=== PATIENT | male | born 1950 | race Caucasian/White ===

== ENCOUNTER 2017-10-09 12:40 | Inpatient (IN) | payer OTHER ==
[2017-10-09] MEDS ORDERED: METOCLOPRAMIDE 10 MG TAB PO PRN (18:35)
[2017-10-09] MEDS ORDERED: ACETAMINOPHEN 325 MG TAB PO PRN (18:35)
[2017-10-09] MEDS ORDERED: HYDROCODONE/APAP 5/325 TAB PO PRN (18:35)
[2017-10-09] MEDS ORDERED: ONDANSETRON 4 MG/2 ML VIAL IVP PRN (18:35)
[2017-10-09] MEDS ORDERED: ONDANSETRON DISINTEGRATING 4 MG TAB PO PRN (18:35)
[2017-10-10] MEDS: OXYCODONE/APAP 5/325 TAB PO PRN ×3 (04:58→18:37)
[2017-10-10] MEDS: CYCLOBENZAPRINE 10 MG TAB PO PRN ×2 (05:37→19:36)
--- NOTE | 2017-10-10 08:15 | GHP ---
[f rep st] HISTORY AND PHYSICAL DATE OF ADMISSION: 10/09/2017 CHIEF COMPLAINT: Leg weakness. HISTORY OF PRESENT ILLNESS: The patient is a 67-year-old male known to Dr. Moody for previou s lumbar fusions. 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 He was in his normal state of health until 10/01/2017, when he fell. He was ev aluated in the emergency department and was found to have no acute issues and was subsequently discha rged. On the evening, around midnight, of 10/03/2017, he was at home when he developed a horrible pa in, radiating from his back into his groin, with shooting pain radiating down into both legs. He pre sented back to the emergency department where he underwent an MRI and CT scan of his lumbar spine. T his showed adjacent-level degeneration at T12-L1. He was subsequently started on steroids and Neuron tin. No surgical intervention was offered, and he was subsequently discharged to rehabilitation. He currently complains of pain radiating into both groins, with occasional shooting pain down his legs. His pain is worse when he leans backward. This is associated with general weakness in his legs and difficulty walking. He has numbness from his knees down. He denies any fevers, chills, or bowel or bladder problems. PAST MEDICAL HISTORY: 1. Inclusion body myositis. 2. Hypertension. MEDICATIONS: Prior to admission are Norvasc, Catapres, Flexeril, Valium, Zestril, MS Contin, multivi tamin, oxycodone, and Ambien. ALLERGIES: No known drug allergies. FAMILY HISTORY: Patient has no family history of spine problems. SOCIAL HISTORY: Patient is and has grown children, as well as grandchildren. He does not sm mahnaz, occasionally drinks, denies recreational drug use. REVIEW OF SYSTEMS: Negative. PHYSICAL EXAM: GENERAL: Patient is a 67-year-old male lying in bed, in no apparent distress. HEAD, EYES, EARS, NOSE, AND THROAT: Negative for drainage. EXTREMITIES: Jeffers, warm, and dry. NEUROLOGI DAVIDA: Patient is awake, alert, oriented x4. Pupils equal, round, reactive to light. Extraocular mot ions are intact. There is no evidence of facial droop. Tongue and uvula are midline. Spinal access ory muscles are intact. His upper extremities are approximately 4+ out of 5, with generalized weakne ss in his biceps, triceps, as well as his right deltoid, which is approximately 3/5. His lower extre mities have 5/5 strength in his bilateral psoas, but his bilateral quads are 3/5. He has 5- out of 5 in his dorsiflexors and plantar flexors. Deep tendon reflexes are 1+ out of 4 throughout, with a ne gative Nenita's and a questionable 1-2 beats of clonus bilaterally. DIAGNOSTIC STUDIES: An MRI from 10/04/2017 from [facility], loaded onto the [facility] PACS system, shows postoperative changes from his previous L1-S1 instrumentation and fusion. He do es have a straight sagittal alignment with kyphosis at the L1-L2 level. At T12-L1, there is a broad- based disc herniation with moderate ligamentum hypertrophy and facet arthropathy, which appears to pr oduce [id number] central canal stenosis seen on the axial images. A CT scan of the cervical spine from [facility] on 10/04/2017 shows postoperative changes from the pre vious L1-S1 fusion. At T12-L1, there is severe degeneration collapse of the disc space, with air in the disc space as well. There is no evidence of an acute fracture. IMPRESSION: This is a 67-year-old male with a history of inclusion body myositis, who has a 10-day h istory of significant leg weakness, difficulty walking, and bilateral groin pain that is likely relat ed to his T12-L1 central canal stenosis. He has not improved with the steroids, Neurontin, and thera py. PLAN: All the above discussed in detail with the patient, as well as Dr. Moody. At this poi nt in time, I would like to obtain an MRI of the cervical spine and the thoracic spine to make sure t hat there is no evidence of any other compressive lesion which may be contributing to his symptoms. We will also consult Dr. Diego Torres for his opinion to determine what he feels may be contributin g to his leg weakness. At this point time, we will keep him on the prednisone and the Neurontin. Wi ll make further treatment recommendations after completion of his imaging studies and his neurology c onsultation. /[id number]/MODL
[2017-10-10] MEDS ORDERED: DIAZEPAM 5 MG TAB PO ONE (09:00)
[2017-10-10] MEDS: predniSONE 20 MG TAB PO SCH (11:06)
[2017-10-10] MEDS: GABAPENTIN 300 MG CAP PO SCH ×4 (11:06→21:46)
--- NOTE | 2017-10-10 12:18 | ASMTCMCOM ---
CM Note CM Note Notes: Spoke with RN & pt. Pt admitted w/bilateral leg weakness; Neuro consulted; awaiting MRI; pt may need surgery. Pt states he normally lives with his spouse, Kay ([phone]), in [facility], but was at [facility] in [facility] [place], for 1 day doing rehab. Pt states his transported him to [facility] seeking Neuro consult because he was unable to do rehab because of severity of leg weakness. Pt would ultimately like to return to [facility], if leg weakness improves. Spoke with Arelis ([phone]), at [facility]; confirmed pt was there for just 1 day. Arelis states [facility] is willing to take pt back, but if it's been >3 days pt will need new insurance auth to return & Arelis will need to know chico. Arelis requests CM send frequent updates; reports she is not able to receive faxes through [employer]; requests faxes be sent to [phone]; updates faxed. Arelis also states [facility] does not provide transportion for their pts & [facility] will need to arrange transport for pt to return. CM will continue to follow. Date Signed: 10/10/2017 12:18 PM Electronically Signed By:Rosita Laguna RN
--- NOTE | 2017-10-10 16:02 | NEUROPROG ---
Assessment: HOSPITAL NEUROLOGY CONSULT REQUESTING: Diego Moody MD REASON: leg weakness, pain HPI: 67 year old right-handed man with a history of biopsy demonstrated inclusion body myositis presented to our facility in transfer for acute lower extremity weakness and pain. Patient was in his usual state of health last month. He generally ambulates without assistance or difficulty and has no limitations in his mobility, save for some extra effort needed to ascend stairs. He was starting to go up some stairs at his home and caught his toe, falling backwards landing on his back and left shoulder. He experienced a lot of shoulder and low back pain after the fall and went to the local ED in [place]. He was cleared medically and discharged home. On returning home he was still having a lot of pain, but on the evening of 10/03 he went to lay in bed and upon going flat developed sudden onset severe shock-like pain in the sacral area wrapping around the groin and descending to the toes. He also noted profound leg weakness. 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 Straightening his back, either standing or laying, seemed to provoke flurries of electric shock-like pain down the legs as noted above. He is now basically having to sit upright at all times to prevent the electric shock sensations from happening. This prompted re-evaluation at the ED in [place], and he was admitted for evaluation. An MRI of the L-spine revealed his known lumbar instrumentation at L1-2, but superior at T12-L1 there was a 6mm disc protrusion with epidural fat resulting in severe central canal stenosis. Neurosurgery was consulted and conservative therapy with PT/rehab and steroid was recommended. He was discharged to rehab, but he was having such pain and weakness he called his primary neurosurgery team here and [facility] and arranged self transfer to our facility. He is still profoundly weak in the legs, and notes this is a dramatic departure from his more mild weakness related to his IBM. He has never experienced any pain like this either. He is not having any bowel/bladder dysfunction. He has chronic shoulder orthopedic issues which make arm elevation difficult, but has also noted new weakness with extension about the elbows. He is having more deep and subtle tingling in the calf regions in both legs, but no profound numbness or tingling. ROS: As per the HPI, otherwise a complete 12 point ROS was performed and is negative ALLERGIES AND MEDS: As recorded in the EMR - reviewed and reconciled PFSH: As per the intake H&P by DEVON Rao from today EXAM: VS reviewed in EMR GEN: WDWN sitting in NAD HEENT: NCAT, sclera anicteric, conjunctiva not injected, MMM, oropharynx clear, no scalp tenderness NECK: supple, nontender, no meningismus CV: RRR s1 s2 wo m/r/c/g. Carotid pulses 2+ wo bruit NEURO: MS: awake, alert, oriented to all spheres. Speech nondysarthric. No language disturbance. Follows commands. Attends to both sides. Recent/remote memory grossly intact. Mood euthymic. Good fund of knowledge. CN: pupils 3mm round and reactive. Fundi with sharp discs. VFF. Primary gaze centered. Full ocular motility. Facial sensation preserved. Face symmetric. Hearing grossly intact to finger rub. Palatoglossal movements intact. Shoulder shrug and head turn strong. MOTOR: he has atrophy in the forearm flexor compartment of both UEs, as well as medial/lateral quadriceps atrophy. His calves also appear atrophic in the lateral > medial compartments. He is weak in the deltoids secondary to pain. His triceps are both weak at 4-/5. His finger flexors are weak distally at the PIP/DIP in several fingers. He has hip flexor/extensor weakness at 4/5, knee extensor weakness at 4/5, dorsiflexor and plantarflexor weakness at 4+/5. SENSORY: intact to all modalities throughout. No extinction. COORD: no ataxia FN/HS. Gene preserved. REFLEX: plantars down. No clonus. Absent ankle jerks. Right patellar 2+/4, left patellar 1/4, BUE groups 2/4 GAIT: he is unable to walk DATA REVIEW: Labs reviewed in EMR PERSONALLY INTERPRETED RESULTS AND DATA: MRI L-spine wow reviewed per the HPI IMPRESSION AND RECOMMENDATIONS: // LEG WEAKNESS AND NEUROPATHIC PAIN // HX IBM Patient's weakness is most certainly out of proportion to the expected with IBM , which typically involved quadriceps and dorsiflexors in the LEs. His neuropathic, electric shock-like pain is definitely not typical of IBM and more consistent with a neuropathic process. The acute nature related to his fall si certainly compelling for a traumatic cord/root process, and given his MRI L- spine findings, this is likely symptomatic. I agree with getting MRI of the T- spine to further investigate, as well as MRI C-spine given his arm weakness, which is not typical of IBM (which typically effects the finger flexor muscles of the forearm and less so the biceps). I have ordered PT, as the patient is eager to attempt to be more mobile (and requesting PT). He is tolerating his gabapentin well at low dose, so will increase to 600mg TID - he very amenable - hopefully this can dampen his pain enough to work with PT. Can further increase gabapentin as he tolerates/needs to max daily dosing regimen of 1200mg TID if needed (he has no renal impairment - GFR > 60, Cr 0.7 on 10/04) Further pain management per primary team. Case was discussed with Dr. Moody. Will sign off. Recall PRN. Objective: Vital Signs Temp Pulse Resp BP Pulse Ox 36.4 C 74 16 125/82 H 91 L 10/10/17 12:00 10/10/17 12:00 10/10/17 12:10/10/17 12:10/10/17 12:00 10/09/17 10/10/17 10/11/17 05:59 05:59 05:59 Output Total 300 Balance -300 Allergies/Adverse Reactions: No Known Allergies Allergy (Unverified 08/18/10 13:54)
[2017-10-10] MEDS ORDERED: GABAPENTIN 300 MG CAP PO SCH (16:12)
[2017-10-10] MEDS ORDERED: DIAZEPAM 5 MG TAB ONE (19:33)
[2017-10-10] MEDS: HYDROmorphONE/DILAUDID 1 MG/ML INJ IVP PRN (20:20)
[2017-10-11] MEDS: CYCLOBENZAPRINE 10 MG TAB PO PRN ×2 (03:05→21:37)
[2017-10-11] MEDS: OXYCODONE/APAP 5/325 TAB PO PRN ×2 (03:05→08:09)
[2017-10-11] MEDS: GABAPENTIN 300 MG CAP PO SCH ×3 (08:09→21:37)
[2017-10-11] MEDS: predniSONE 20 MG TAB PO SCH (08:09)
[2017-10-11] MEDS ORDERED: D5W NS W/ 20 KCl/L 1,000 ML IV SCH (08:30)
[2017-10-11] MEDS ORDERED: ENOXAPARIN 40 MG/0.4 ML SYR SC SCH (09:00)
--- NOTE | 2017-10-11 09:24 | SOAPPROG ---
SOAP Progress Note Assessment/Plan: Assessment: 58 yo male with H/O inclusion body myositis with recent acute bilateral LE weakness after a fall. He also has chronic weakness in arms as well MRI C spine and T spine show degenerative changes with severe stenosis at C2/3 Plan: NPO C2-4 laminectomy/fusion and T12/L1 TLIF today at [address] El plan discussed with Dr. Yan 10/11/17 09:20 10/11/17 09:27 Subjective: awake, alert, comfortable. He reports unchanged weakness in Legs expecially quads. He reports longstanding upper extremity weakness the he relates to his IBM. pain controlled Objective: Vital Signs Temp Pulse Resp BP Pulse Ox 36.4 C 79 17 117/72 94 10/11/17 07:31 10/11/17 07:31 10/11/17 07:31 10/11/17 07:31 10/11/17 07:31 10/10/17 10/11/17 10/12/17 05:59 05:59 05:59 Intake Total 1190 Output Total 300 1375 Balance -300 -185 Neuro: A+ox4, speech clear Limited ROM right shoulder since his fall. 4-/5 left deltoid, 3/5 right deltoid 4/5 left finger extensor 3/5 bilat radiosonde specialist 4/5 bilat quad 4/5 bilat PF 5/5 DF/EHL/iliopsoas sens +LT throughout upper/lower ext ICD10 Worksheet Patient Problems: Problems Problem Status Onset Leg weakness, bilateral Acute
--- NOTE | 2017-10-11 12:15 | ASMTCMCOM ---
CM Note CM Note Notes: Pt scheduled to have C2-4 laminectomy/fusion & T12/L1 TLIF today. Arelis at [facility], faxed updates. CM will follow. Dc plan- [facility] Date Signed: 10/11/2017 12:15 PM Electronically Signed By:Rosita Laguna RN
[2017-10-11] MEDS ORDERED: THROMBIN (BOVINE) 20,000 UNIT VIAL TP ONE ×2 (12:18→17:09)
[2017-10-11] MEDS ORDERED: BUPIVACAINE 0.25% 30 ML SDV ONE (12:19)
[2017-10-11] MEDS ORDERED: BACITRACIN 50,000 UNITS/10 ML SYR IRR ONE (12:19)
[2017-10-11] MEDS ORDERED: POVIDONE-IODINE 30 GM OINTTUBE TP ONE (12:19)
[2017-10-11] MEDS ORDERED: CITRATE DEXTROSE SOLN 500 ML BAG ONE ×2 (12:19→15:20)
[2017-10-11] MEDS ORDERED: CHLORHEXIDINE GLUC HIBICLENS 118 ML BTL TP ONE (12:25)
[2017-10-11] MEDS ORDERED: morphINE PF 5 MG/10 ML INJ IT ONE (12:36)
[2017-10-11] MEDS ORDERED: fentaNYL 100 MCG/2 ML INJ IT ONE (12:36)
[2017-10-11] MEDS ORDERED: TRANEXAMIC ACID 1,000 MG in NS (SYRINGE) 50 ML IV ONE (12:36)
[2017-10-11] MEDS ORDERED: ceFAZolin 2 GM/SWFI 2 GM/20 ML SYR IVP ONE ×2 (12:36→13:00)
[2017-10-11] MEDS ORDERED: LR 1,000 ML IV ONE (12:50)
[2017-10-11] MEDS ORDERED: LIDOCAINE 1% 2 ML INJ ID PRN ×2 (12:54→12:55)
--- NOTE | 2017-10-11 13:04 | PDANEPAE ---
ANE History of Present Illness Patient presents for C2-4 laminectomy and fusion as well at T12-L1 TLIF. ANE Past Medical History - Cardiovascular History Hx Arrhythmias: Yes - Pulmonary History Hx Oxygen in Use at Home: No Hx Sleep Apnea: No - Endocrine History Hx Diabetes: No - Chronic Pain History Chronic Pain: Yes - Surgical History Prior Surgeries: At least 4 previous spine procedures ANE Review of Systems Review of Systems: - Exercise capacity Exercise capacity: limited by disability ANE Patient History - Allergies Allergies/Adverse Reactions: No Known Allergies Allergy (Unverified 08/18/10 13:54) - Home Medications Home medications: home medication list seen and reviewed Home Medications: Diazepam [Valium 5 MG (*)] 5 mg PO Q8 PRN 12/07/15 [Last Taken 12/07/15] Lisinopril [Zestril 20 mg (*)] 20 mg PO DAILY 12/07/15 [Last Taken 10/09/17] amLODIPine BESYLATE [Norvasc 10 mg (*)] 10 mg PO DAILY 12/07/15 [Last Taken 03/19] Acetaminophen [Tylenol 325mg (*)] 650 mg PO Q6HRS PRN 10/10/17 [Last Taken Unknown] Albuterol [Proventil Neb] 3 ml IH Q4HRS PRN 10/10/17 [Last Taken Unknown] Aspirin EC [Aspirin EC 81 mg (*)] 81 mg PO DAILY 10/10/17 [Last Taken 10/09/17] Cyclobenzaprine [Flexeril 10 MG (*)] 10 mg PO TID PRN 10/10/17 [Last Taken 10/08 22:00] Enoxaparin [Lovenox 40 MG (*)] 40 mg SQ DAILY 10/10/17 [Last Taken 10/09/17] Gabapentin [Neurontin 300 MG (*)] 300 mg PO TID 10/10/17 [Last Taken 10/09/17 14 :00] Lidocaine 5% [Lidoderm 5% Patch (*)] 1 ea TD DAILY PRN 10/10/17 [Last Taken Unknown] Pantoprazole Sodium [Protonix 40mg (*)] 40 mg PO DAILY 10/10/17 [Last Taken 03/19] oxyCODONE IR [Oxycodone Ir (*)] 5 - 10 mg PO Q3HRS PRN 10/10/17 [Last Taken 03/19 04:00] predniSONE 60 mg PO DAILY 10/10/17 [Last Taken 10/09/17] - NPO status NPO Status: no food or drink >8 hours - Anes Hx Anes Hx: no prior problems - Smoking Hx Smoking Status: Former smoker ANE Labs/Vital Signs - Labs Result Diagrams: 10/11/17 10:29 10/11/17 10:29 - Vital Signs Blood Pressure: 119/74 Heart Rate: 81 Respiratory Rate: 18 O2 Sat (%): 92 Height: 177.8 cm Weight: 78.471 kg ANE Physical Exam - Airway Neck exam: FROM Mallampati Score: Class 2 Mouth exam: normal dental/mouth exam - Pulmonary Pulmonary: no respiratory distress - Cardiovascular Cardiovascular: regular rate and rhythym - ASA Status ASA Status: II ANE Anesthesia Plan Anesthesia Plan: general endotracheal anesthesia Lines/Monitors: arterial line (RBA discussed)
[2017-10-11] MEDS ORDERED: REMIFENTANIL HCL 1 MG VIAL ONE ×3 (13:11→13:12)
[2017-10-11] MEDS ORDERED: fentaNYL 100 MCG/2 ML INJ ONE ×3 (13:11→17:35)
[2017-10-11] MEDS ORDERED: PROPOFOL 200 MG/20 ML VIAL ONE ×2 (13:12→14:14)
[2017-10-11] MEDS ORDERED: PROPOFOL/EMULSION 500 MG/50 ML BOTTLE IV ONE ×3 (13:12→17:40)
[2017-10-11] MEDS ORDERED: LIDOCAINE 2% 5 ML SDV ONE (13:20)
[2017-10-11] MEDS ORDERED: ROCURONIUM 50 MG/5 ML VIAL ONE ×2 (13:20)
[2017-10-11] MEDS ORDERED: DEXAMETHASONE 4 MG/ML VIAL ONE (13:21)
[2017-10-11] MEDS ORDERED: ONDANSETRON 4 MG/2 ML VIAL ONE (13:21)
--- NOTE | 2017-10-11 16:10 | ASMTCMCOM ---
CM Note CM Note Notes: Arelis dutton [facility] inpatient [facility] ([phone]) states they can accept pt Saturday if pt still qualifies and a new ins auth is obtained (she does not anticipate it should take long). CM to follow. Date Signed: 10/11/2017 04:09 PM Electronically Signed By:LEONARDA Joseph
[2017-10-11] MEDS ORDERED: HYDROmorphONE/DILAUDID 2 MG/ML INJ ONE ×2 (17:30→17:31)
[2017-10-11] MEDS ORDERED: ceFAZolin 1 GM VIAL ONE (18:10)
[2017-10-11] MEDS ORDERED: MAGNESIUM HYDROXIDE 30 ML UDCUP PO PRN (19:55)
[2017-10-11] MEDS ORDERED: NALOXONE HCL 0.4 MG/ML INJ IVP PRN (19:55)
[2017-10-11] MEDS ORDERED: BISACODYL 10 MG SUPP PR PRN (19:55)
[2017-10-11] MEDS ORDERED: diphenhydrAMINE 25 MG CAP PO PRN (19:55)
[2017-10-11] MEDS ORDERED: ONDANSETRON 4 MG/2 ML VIAL IVP PRN (19:55)
[2017-10-11] MEDS ORDERED: NS W/ 20 KCl/L 1,000 ML IV SCH (20:00)
[2017-10-11] MEDS ORDERED: ALBUTEROL 3 ML DEYVIAL IH PRN (20:14)
--- NOTE | 2017-10-11 20:14 | POSTANESTH ---
Post Anesthetic Evaluation Cardiovascular Status: Similar to Pre-Op Cond Respiratory Status: Similar to Pre-op Cond. Level of Consciousness/Mental Status: Alert and Oriented Pain Control: Adequate, Prn Tx Ordered Nausea/Vomiting Control: Adequate, Prn Tx Ordered Complications Possibly Related to Anesthesia: None Noted (Transfer of care to ICU staff. No anesthesia related complications observed.)
--- NOTE | 2017-10-11 20:26 | SOAPPROG ---
SOAP Progress Note Assessment/Plan: Assessment: post op check 58 yo male with H/O inclusion body myositis with recent acute bilateral LE weakness after a fall. s/p C2-4 posterior decompression/fusion and hdwr removal L1/2 with T12/L1 TLIF and T12-L2 fusion doing well Plan: CPM in PACU cervical and lumbar FRANK to bulb suction cervical collar at all times LSO ok to fit tomorrow Subjective: awake, alert, pain controlled following commands x 4 answering questions appropriately Objective: Vital Signs Temp Pulse Resp BP Pulse Ox 36.7 C 81 18 119/74 92 10/11/17 13:18 10/11/17 13:18 10/11/17 13:18 10/11/17 13:18 10/11/17 13:18 Laboratory Results 10/11/17 10:29 10/11/17 10:29 10/10/17 10/11/17 10/12/17 05:59 05:59 05:59 Intake Total 1190 Output Total 300 1375 Balance -300 -185 Neuro: RESTREPO to command speech clear PERRLA EOMI 3/5 bilat deltoid 4+/5 bilat PF 5/5 bilat DF/EHL 4-/5 bilat quad 5/5 bilat hamstrings 5/5 bilat iliopsoas 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
[2017-10-11] MEDS: HYDROmorphONE/DILAUDID 1 MG/ML INJ IVP PRN (20:27)
--- NOTE | 2017-10-11 20:29 | POSTOPPROG ---
Post Op Note Date of Operation: 10/11/17 Surgeon: Diego Moody Mud Mixer Helper: Janes Muir Anesthesiologist: Tanner Anesthesia: GET(General Endotracheal) Pre-op Diagnosis: Cervical stenosis C2-4 and T12/L1 HNP/stenosis Post-op Diagnosis: same Indication: upper/lower ext weakness Procedure: C2-4 posterior decompression/fusion and L1/2 Hdwr removal and T12/L1 TLIF Findings: stenosis Inf/Abcess present in the surg proc area at time of surgery?: No EBL: 100-500 Total fluids administered: 4 liters crystalloid, 135ml cell saver Complications: none Drains: Newton Crawford (cervical and lumbar to bulb suction)
[2017-10-11] MEDS: morphINE PCA 30 MG/30 ML PCA IV PRN (21:33)
[2017-10-11] MEDS: morphINE SR 15 MG TAB PO SCH (21:37)
[2017-10-11] MEDS ORDERED: ceFAZolin 2 GM/DEXTROSE 100 ML IV SCH (22:00)
[2017-10-11] MEDS ORDERED: hydrALAZINE 20 MG/ML VIAL IVP PRN (22:26)
[2017-10-11] MEDS ORDERED: DEXMEDETOMIDINE IN 0.9 % NACL 50 ML IV SCH (22:30)
[2017-10-11] MEDS: FAMOTIDINE 20 MG TAB PO SCH (22:31)
[2017-10-11] MEDS: SENNOSIDES/DOCUSATE SODIUM TAB PO SCH (22:31)
[2017-10-11] MEDS: POLYETHYLENE GLYCOL 3350 17 GM PKT PO SCH (22:31)
--- NOTE | 2017-10-12 01:33 | GOP ---
[f rep st] OPERATIVE REPORT DATE OF OPERATION: 10/11/2017 SURGEON: Diego Moody MD NEUROSURGEON: Diego Moody MD FINISHING PAN OPERATOR: ELDON Keller. ANESTHESIA: General endotracheal. PREOPERATIVE DIAGNOSIS: Severe cervical stenosis and spinal cord compression with acute myelopathic symptoms, status post a fall. POSTOPERATIVE DIAGNOSIS: Severe cervical stenosis and spinal cord compression with acute myelopathic symptoms, status post a fall. PROCEDURE PERFORMED: C2 through C4 laminectomies for decompression of spinal cord with posterior seg mental (pedicle screw and lateral mass screw) fixation from C2 to C4, with C2 to C4 posterolateral fu sukhdev with local autograft. Use of intraoperative microscopy, fluoroscopy and computer volumetric wesley reotactic navigation with intraoperative neurophysiologic testing. FINDINGS: ESTIMATED BLOOD LOSS: 100 cc. 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 He recently fell and had acute worsening of his weakness. It is u nclear whether it was the myositis or the multilevel spinal stenosis including C2-3 and C3-4 was well as T12-L1. After detailed examinations and discussions and consulting with Neurology, it was determ ined that the spinal canal should be decompressed in the cervical and thoracolumbar areas, because hi s myelopathic symptoms were much worse than that expected from the myositis. He presents now for caryn gical decompression and stabilization of both the cervical and thoracolumbar areas. DESCRIPTION OF PROCEDURE: After informed consent was obtained, the patient was taken to the operatin g room and placed in the prone position on the Newton table with the head in the radiolucent Mayel d miller head assistant wet process. The posterior cervical region was prepped and draped in a sterile fashion. After flu oroscopic localization of correct levels, the subcutaneous and intramuscular tissues were infiltrated with local anesthesia. A midline linear incision was then created from approximately C2 to C4. Thi s was carried down to the fascial layer which was then incised using monopolar electrocautery and car ried in a subperiosteal plane along the spinous processes, and out the lamina bilaterally. Intraoper ative fluoroscopy was again utilized to verify the correct levels. Following this, the O-arm neurona vigational system was brought in and 3-D reconstructed images obtained. Using computer volumetric st ereotactic navigation, pedicle screws were placed at C2 with lateral mass screw fixation at C3 and C4 bilaterally. The O-arm neuronavigational system was then utilized to verify good positioning. The screws were also stimulated with monopolar electrostimulation and interpretation of the potentials by the surgeon. Following verification of good position, both neurophysiological and radiographically, laminectomies were performed at C2, C3 and C4 with an extensive decompression of the spinal canal. The wound was then copiously irrigated with antibiotic irrigation and meticulous hemostasis was achie kali. The remaining lateral masses and facet joints at C2-C3 and C3-4 were extensively drilled out an d the local autograft from the laminectomy defects was packed out laterally for a posterolateral fusi on from C2 to C4. The subcutaneous and intramuscular tissues were then re-infiltrated with local ane sthesia and the wound was closed in a layered fashion using interrupted Vicryl sutures followed by St yoly-Strips on the skin after placement of an epidural drain. COMPLICATIONS: None. DISPOSITION: The patient remained intubated and was repositioned for the thoracolumbar procedure. /[id number]/MODL
--- NOTE | 2017-10-12 01:53 | GOP ---
[f rep st] OPERATIVE REPORT DATE OF OPERATION: 10/11/2017 SURGEON: Diego Moody MD NEUROSURGEON: Diego Moody MD DISTRICT SALES REPRESENTATIVE: ELDON Keller ANESTHESIA: General endotracheal. PREOPERATIVE DIAGNOSIS: Severe thoracolumbar stenosis and spinal cord compression with acute myelopathic symptoms, status post a fall. POSTOPERATIVE DIAGNOSIS: Severe thoracolumbar stenosis and spinal cord compression with acute myelopathic symptoms, status post a fall. PROCEDURE PERFORMED: Bilateral T12-L1 far lateral transpedicular decompression with T12-L1 posterior nonsegmental (pedicle screw) fixation and posterolateral fusion at T12-L1. T12-L1 posterior/transforaminal lumbar interbody fusion with 2 structural PEEK interbody spacers, local autograft and bone morphogenic protein. Use of intraoperative microscopy, fluoroscopy and computer volumetric stereotactic navigation with intraoperative neurophysiologic testing. Injection of intrathecal narcotic analgesics and subcutaneous and intramuscular local anesthesia for postoperative pain control. FINDINGS: ESTIMATED BLOOD LOSS: 150 cc. 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 He recently fell and had acute worsening of his weakness. It was unclear whether it was the myositis or the multilevel spinal stenosis including T12-L1. After detailed examinations, discussions and consulting with Neurology , it was determined that the spinal canal should be decompressed in the cervical and thoracolumbar areas, because his myopathic symptoms were much worse than that expected from the myositis. He presents now for surgical decompression and stabilization of both the cervical and thoracolumbar areas. DESCRIPTION OF PROCEDURE: After the posterior cervical procedure was completed , the patient remained positioned and the arm position was moved and padded appropriately. The thoracolumbosacral areas were prepped and draped in a sterile fashion. After fluoroscopic localization of the correct levels, the subcutaneous and intramuscular tissues were infiltrated with local anesthesia. A midline linear incision was then created over the T12-L1 levels. This was carried down to the fascial layer, which was incised using monopolar electrocautery and carried in the subperiosteal plane along the spinous processes and lamina bilaterally. Intraoperative fluoroscopy was again utilized to verify the correct levels. Following this, far lateral transpedicular decompressions were performed bilaterally with complete unroofing of the facet joints and neural foramina at T12 and L1 with extensive decompression of the lateral recesses and central canal. Following adequate decompression, the [place] neuronavigational system was brought in and using computer volumetric stereotactic navigation, pedicle screws were placed at T12 and L1. Each individual screw was tested neurophysiologically with monopolar electrostimulation and interpretation of the potentials by the surgeon in order to verify good positioning. The C-arm system was then utilized to verify good position of the screws as well. Following this, the rods were placed and secured under a slight amount of distraction during which time a complete diskectomy was performed at the T12-L1 level with preparation of the endplates and placement of 2 structural PEEK interbody spacers, local autograft and bone morphogenic protein. The screw and oleksandr systems were then placed in a slight amount of compression in order to facilitate bony union and to minimize the potential for posterior graft migration. The subcutaneous and intramuscular tissues were re-infiltrated with local anesthesia after any remaining facet joint and transverse processes were decorticated and the residual local autograft was placed out laterally for a posterolateral fusion at the T12-L1 level. The drain was then placed. The subcutaneous and intramuscular tissues were re-infiltrated with local anesthesia and the wound was closed in a layered fashion using interrupted Vicryl sutures followed by Steri-Strips on the skin. COMPLICATIONS: None. DISPOSITION: The patient is currently in the process of being repositioned for extubation. /[id number]/MODL MTDD
[2017-10-12] MEDS: ceFAZolin 2 GM/SWFI 2 GM/20 ML SYR IVP SCH ×2 (02:33→09:53)
[2017-10-12] MEDS: METHOCARBAMOL 750 MG TAB PO PRN ×3 (02:41→17:35)
[2017-10-12 04:54] LABS: PLATELET COUNT 200 10^3/uL (150-400)
[2017-10-12] MEDS: CYCLOBENZAPRINE 10 MG TAB PO PRN ×3 (05:24→21:39)
[2017-10-12] MEDS: morphINE PCA 30 MG/30 ML PCA IV PRN (05:35)
--- NOTE | 2017-10-12 08:31 | NEUSURGPN ---
Date of Surgery: 10/11/17 Post Op Day: 1 Assessment/Plan: Assessment: post op check 58 yo male with H/O inclusion body myositis with recent acute bilateral LE weakness after a fall. s/p C2-4 posterior decompression/fusion and hdwr removal L1/2 with T12/L1 TLIF and T12-L2 fusion POD#1 Plan: - neuro stable - pain control: Off of precedex. 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 MS Contin to start this morning - Cervical and lumbar FRANK to bulb suction - cervical hard collar at all times - LSO brace when out of bed. If patient unable to get his brace from [facility] then Legal Advisor will need to fit a new one - PT/OT - SCDs/TEDs/Lovenox - transfer to the floor - please call with any questions/concerns Subjective: Having pain concentrated at the neck and back. No radicular pain or numbness/ tingling. Objective: Awake. Alert. PERRL. EOMI Following commands Limited ROM right shoulder since his fall. 4+/5 left deltoid, 4/5 right deltoid 4/5 bilateral medical aides teacher 4/5 bilat quad 4/5 bilat PF 5/5 DF/EHL/iliopsoas sens +LT throughout upper/lower ext Catheter Insertion Date: 10/11/17 Neurosurgery Physical Exam - Vitals, I&O, Labs I and O 10/11/17 10/12/17 10/13/17 05:59 05:59 05:59 Intake Total 1190 2459.9 Output Total 1375 3240 Balance -185 -780.1 Weight 78.471 kg Intake: Oral (ml) 1190 1500 IV Infused (ml) 959.9 Dexmedetomidine in 0.9 % 27.9 NaCl 50 ml @ Per Protocol IV CONT LUCIANA Rx#: [id number] NS W/ 20 KCl/L 1,000 ml @ 904 100 mls/hr IV CONT LUCIANA Rx#:[id number] morphINE SHADING PAINTER See Protocol 28 IV PRN PRN Rx#: [id number] Output: Urine (ml) 1375 3000 Catheter 3000 Incontinence 400 Urinal 975 FRANK Drain Output (ml) 240 Back Newton Crawford 160 Posterior Neck Newton 80 Crawford Other: Intake Quantity Yes Sufficient Number of Voids Incontinence 1 Vital Signs Temp Pulse Resp BP Pulse Ox 36.5 C 79 17 145/78 H 98 10/12/17 04:00 10/12/17 06:00 10/12/17 06:00 10/12/17 06:00 10/12/17 06:00 Laboratory Results 10/12/17 04:40 10/12/17 04:40 ICD10 Worksheet Patient Problems: Problems Problem Status Onset Leg weakness, bilateral Acute
[2017-10-12] MEDS: LISINOPRIL 20 MG TAB PO SCH (08:42)
[2017-10-12] MEDS: predniSONE 20 MG TAB PO SCH (08:43)
[2017-10-12] MEDS: OXYCODONE/APAP 5/325 TAB PO PRN ×4 (08:44→21:39)
[2017-10-12] MEDS: morphINE SR 15 MG TAB PO SCH ×2 (08:45→21:39)
[2017-10-12] MEDS: FAMOTIDINE 20 MG TAB PO SCH ×2 (08:45→21:39)
[2017-10-12] MEDS: PANTOPRAZOLE SODIUM 40 MG TAB PO SCH (08:46)
[2017-10-12] MEDS: SENNOSIDES/DOCUSATE SODIUM TAB PO SCH ×2 (08:46→21:39)
[2017-10-12] MEDS: GABAPENTIN 300 MG CAP PO SCH ×3 (08:47→21:39)
[2017-10-12] MEDS: POLYETHYLENE GLYCOL 3350 17 GM PKT PO SCH ×3 (08:47→21:38)
[2017-10-12] MEDS: ENOXAPARIN 40 MG/0.4 ML SYR SC SCH (08:47)
--- NOTE | 2017-10-12 16:25 | ASMTCMCOM ---
CM Note CM Note Notes: Updates faxed to [facility] including PT/OT notes rec inpat rehab. Insurance auth needed for return to [facility] inrit rehab. Potential d/c Saturday. Date Signed: 10/12/2017 04:25 PM Electronically Signed By:LEONARDA Joseph
[2017-10-13] MEDS: METHOCARBAMOL 750 MG TAB PO PRN ×2 (01:02→14:36)
[2017-10-13] MEDS: OXYCODONE/APAP 5/325 TAB PO PRN ×4 (03:49→19:34)
--- NOTE | 2017-10-13 08:42 | NEUSURGPN ---
Date of Surgery: 10/11/17 Post Op Day: 2 Assessment/Plan: Assessment: post op check 58 yo male with H/O inclusion body myositis with recent acute bilateral LE weakness after a fall. 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 Continue with current oral regimen - Cervical and lumbar FRANK to bulb suction- continue - cervical hard collar at all times - LSO brace when out of bed. - postop C-spine x-rays stable, postop L-spine x-rays pending - PT/OT - SCDs/TEDs/Lovenox - will need rehab upon discharge - please call with any questions/concerns Subjective: LE pain improved compared to prior to surgery. Objective: Awake. Alert. PERRL. EOMI Following commands Limited ROM right shoulder since his fall. 4+/5 left deltoid, 4/5 right deltoid 4/5 bilateral digital production artist 4+/5 bilat quad 4+/5 bilat PF 5/5 DF/EHL/iliopsoas sens +LT throughout upper/lower ext Catheter Insertion Date: 10/11/17 Neurosurgery Physical Exam - Vitals, I&O, Labs I and O 10/12/17 10/13/17 10/14/17 05:59 05:59 05:59 Intake Total 2459.9 3420.1 Output Total 3240 4085 Balance -780.1 -664.9 Weight 78.471 kg Intake: Oral (ml) 1500 3250 IV Infused (ml) 959.9 170.1 Dexmedetomidine in 0.9 % 27.9 NaCl 50 ml @ Per Protocol IV CONT LUCIANA Rx#: [id number] NS W/ 20 KCl/L 1,000 ml @ 904 159 100 mls/hr IV CONT LUCIANA Rx#:[id number] morphINE LABOR ECONOMICS TEACHER See Protocol 28 11.1 IV PRN PRN Rx#: [id number] Output: Urine (ml) 3000 3790 Catheter 3000 490 Urinal 3300 FRANK Drain Output (ml) 240 295 Back Newton Crawford 160 185 Posterior Neck Newton 80 110 Crawford Other: Intake Quantity Yes Sufficient Number of Voids Catheter 1 Urinal 3 Vital Signs Temp Pulse Resp BP Pulse Ox 36.6 C 81 18 109/69 96 10/13/17 07:46 10/13/17 07:46 10/13/17 07:46 10/13/17 07:46 10/13/17 07:46 Laboratory Results 10/12/17 04:40 10/12/17 04:40 ICD10 Worksheet Patient Problems: Problems Problem Status Onset Leg weakness, bilateral Acute
[2017-10-13] MEDS: ENOXAPARIN 40 MG/0.4 ML SYR SC SCH (09:05)
[2017-10-13] MEDS: POLYETHYLENE GLYCOL 3350 17 GM PKT PO SCH ×3 (09:06→22:37)
[2017-10-13] MEDS: SENNOSIDES/DOCUSATE SODIUM TAB PO SCH ×2 (09:08→22:38)
[2017-10-13] MEDS: FAMOTIDINE 20 MG TAB PO SCH ×2 (09:08→22:38)
[2017-10-13] MEDS: GABAPENTIN 300 MG CAP PO SCH ×3 (09:08→22:37)
[2017-10-13] MEDS: LISINOPRIL 20 MG TAB PO SCH (09:09)
[2017-10-13] MEDS: PANTOPRAZOLE SODIUM 40 MG TAB PO SCH (09:09)
[2017-10-13] MEDS: predniSONE 20 MG TAB PO SCH (09:09)
[2017-10-13] MEDS: CYCLOBENZAPRINE 10 MG TAB PO PRN ×2 (09:09→22:37)
[2017-10-13] MEDS: morphINE SR 15 MG TAB PO SCH ×2 (09:10→22:37)
[2017-10-13] MEDS: HYDROmorphONE/DILAUDID 1 MG/ML INJ IVP PRN (22:57)
[2017-10-14] MEDS: OXYCODONE/APAP 5/325 TAB PO PRN ×3 (03:40→20:57)
--- NOTE | 2017-10-14 08:07 | NEUSURGPN ---
Date of Surgery: 10/11/17 Post Op Day: 3 Assessment/Plan: 58 yo male with H/O inclusion body myositis with recent acute bilateral LE weakness after a fall. s/p C2-4 posterior decompression/fusion and hdwr removal L1/2 with T12/L1 TLIF and T12-L2 fusion POD#3 Plan: - neuro stable - Cervical and lumbar FRANK to bulb suction- continue for today - cervical hard collar at all times - LSO brace when out of bed. - postop C-spine x-rays stable, postop L-spine x-rays pending - PT/OT - SCDs/TEDs/Lovenox - Case management to work on dispo to rehab in [place], hopeful to dc tomorrow if remains stable - please call with any questions/concerns -Patient was seen by Dr El as well this am Subjective: Expected incisional pain, no other complaints Objective: Awake. Alert. PERRL. EOMI Following commands Limited ROM right shoulder since his fall. 4+/5 left deltoid, 4/5 right deltoid 4/5 bilateral supervisor home restoration service 4+/5 bilat quad 4+/5 bilat PF 5/5 DF/EHL/iliopsoas sens +LT throughout upper/lower ext Dressings x2 CDI Neuro Check Frequency: per routine Urinary Catheter in Place: No Catheter Insertion Date: 10/11/17 - Physician Discussed Patient with : Franissco Patient Seen by : Fransisco Neurosurgery Physical Exam - Vitals, I&O, Labs I and O 10/13/17 10/14/17 10/15/17 05:59 05:59 05:59 Intake Total 3420.1 1850 Output Total 4085 6000 Balance -664.9 -4150 Intake: Oral (ml) 3250 1850 IV Infused (ml) 170.1 NS W/ 20 KCl/L 1,000 ml @ 159 100 mls/hr IV CONT LUCIANA Rx#:[id number] morphINE MAMMA LOGIST See Protocol 11.1 IV PRN PRN Rx#: [id number] Output: Urine (ml) 3790 5950 Catheter 490 850 Urinal 3300 5100 FRANK Drain Output (ml) 295 50 Back Newton Crawford 185 30 Posterior Neck Newton 110 20 Crawford Other: Intake Quantity Yes Yes Sufficient Number of Voids Catheter 1 1 Urinal 3 3 Vital Signs Temp Pulse Resp BP Pulse Ox 36.5 C 81 17 141/80 H 98 10/14/17 07:38 10/14/17 07:38 10/14/17 07:38 10/14/17 07:38 10/14/17 07:38 Laboratory Results 10/12/17 04:40 10/12/17 04:40 ICD10 Worksheet Patient Problems: Problems Problem Status Onset Leg weakness, bilateral Acute
[2017-10-14] MEDS: METHOCARBAMOL 750 MG TAB PO PRN ×2 (08:16→16:14)
[2017-10-14] MEDS: PANTOPRAZOLE SODIUM 40 MG TAB PO SCH (08:16)
[2017-10-14] MEDS: ENOXAPARIN 40 MG/0.4 ML SYR SC SCH (08:16)
[2017-10-14] MEDS: GABAPENTIN 300 MG CAP PO SCH ×3 (08:16→20:57)
[2017-10-14] MEDS: LISINOPRIL 20 MG TAB PO SCH (08:17)
[2017-10-14] MEDS: predniSONE 20 MG TAB PO SCH (08:17)
[2017-10-14] MEDS: POLYETHYLENE GLYCOL 3350 17 GM PKT PO SCH ×3 (08:17→23:04)
[2017-10-14] MEDS: SENNOSIDES/DOCUSATE SODIUM TAB PO SCH ×2 (08:17→22:41)
[2017-10-14] MEDS: morphINE SR 15 MG TAB PO SCH ×2 (08:17→20:57)
[2017-10-14] MEDS: FAMOTIDINE 20 MG TAB PO SCH ×2 (08:18→20:57)
--- NOTE | 2017-10-14 11:39 | ASMTCMCOM ---
CM Note CM Note Notes: Spoke with Arelis Villagomez regarding patient's status and possibility of his return to rehab. Per Neuro notes likely ready to dc tomorrow. Arelis is working on authorizaton with insurance, Updates faxed to facility. Plan likely dc to [facility] rehab in [place] tomorrow. CM to follow Date Signed: 10/14/2017 11:38 AM Electronically Signed By:Maryuri Corrales RN
[2017-10-14] MEDS: LACTULOSE 20 GM/30 ML UDCUP PO PRN ×2 (12:09→17:39)
[2017-10-14] MEDS: CYCLOBENZAPRINE 10 MG TAB PO PRN ×2 (12:10→17:39)
[2017-10-14 16:12] VITALS: RESP 16
[2017-10-14] MEDS: HYDROmorphONE/DILAUDID 1 MG/ML INJ IVP PRN (22:40)
[2017-10-15] MEDS: OXYCODONE/APAP 5/325 TAB PO PRN ×2 (05:24→12:23)
[2017-10-15] MEDS: CYCLOBENZAPRINE 10 MG TAB PO PRN ×2 (05:24→12:23)
--- NOTE | 2017-10-15 07:20 | SOAPPROG ---
[facility] Progress Note Assessment/Plan: Assessment: 67 yo M POD #4 C2/4 decompression/fusion and T12/L1 TLIF with T12- l2 fusion Plan: neuro: stable and doing well overall PT/OT hard collar and LSO brace when out of bed ok to transfer to rehab today JPs removed x 2 please call with neuro changes seen by Dr El today 10/15/17 07:17 Subjective: back pain and neck pain improving, continued general weakness. Objective: Vital Signs Temp Pulse Resp BP Pulse Ox 37.0 C 94 16 119/66 94 10/14/17 23:29 10/14/17 23:29 10/14/17 23:29 10/14/17 23:29 10/14/17 23:29 Laboratory Results 10/12/17 04:40 10/12/17 04:40 10/14/17 10/15/17 10/16/17 05:59 05:59 05:59 Intake Total 1850 1150 Output Total 6000 3385 Balance -4150 -2235 AAOx4, +FC PERRL, EOMI, no facial droop GILLIAN x4 + light touch C/D/I x 2 ICD10 Worksheet Patient Problems: Problems Problem Status Onset Leg weakness, bilateral Acute
[2017-10-15 07:50] VITALS: BP 132/81; PULSE 83; TEMP 98.2; O2SAT 96
[2017-10-15] MEDS: predniSONE 20 MG TAB PO SCH (08:07)
[2017-10-15] MEDS: ENOXAPARIN 40 MG/0.4 ML SYR SC SCH (08:07)
[2017-10-15] MEDS: LISINOPRIL 20 MG TAB PO SCH (08:08)
[2017-10-15] MEDS: FAMOTIDINE 20 MG TAB PO SCH (08:09)
[2017-10-15] MEDS: GABAPENTIN 300 MG CAP PO SCH (08:09)
[2017-10-15] MEDS: morphINE SR 15 MG TAB PO SCH (08:10)
[2017-10-15] MEDS: PANTOPRAZOLE SODIUM 40 MG TAB PO SCH (08:10)
[2017-10-15] MEDS: SENNOSIDES/DOCUSATE SODIUM TAB PO SCH (08:11)
[2017-10-15] MEDS: POLYETHYLENE GLYCOL 3350 17 GM PKT PO SCH (08:12)
[2017-10-15] MEDS: METHOCARBAMOL 750 MG TAB PO PRN (08:23)
--- NOTE | 2017-10-15 12:32 | PDIAF ---
- Diagnosis Code Status: Full Code - Medication Management Discharge Medications: Medications to Continue on Transfer Diazepam [Valium 5 MG (*)] 5 mg PO Q8 PRN 12/07/15 [Last Taken 12/07/15] Lisinopril [Zestril 20 mg (*)] 20 mg PO DAILY 12/07/15 [Last Taken 10/09/17] amLODIPine BESYLATE [Norvasc 10 mg (*)] 10 mg PO DAILY 12/07/15 [Last Taken 03/19] Acetaminophen [Tylenol 325mg (*)] 650 mg PO Q6HRS PRN 10/10/17 [Last Taken Unknown] Albuterol [Proventil Neb] 3 ml IH Q4HRS PRN 10/10/17 [Last Taken Unknown] Aspirin EC [Aspirin EC 81 mg (*)] 81 mg PO DAILY 10/10/17 [Last Taken 10/09/17] Cyclobenzaprine [Flexeril 10 MG (*)] 10 mg PO TID PRN 10/10/17 [Last Taken 10/08 22:00] Enoxaparin [Lovenox 40 MG (*)] 40 mg SQ DAILY 10/10/17 [Last Taken 10/09/17] Gabapentin [Neurontin 300 MG (*)] 300 mg PO TID 10/10/17 [Last Taken 10/09/17 14 :00] Lidocaine 5% [Lidoderm 5% Patch (*)] 1 ea TD DAILY PRN 10/10/17 [Last Taken Unknown] Pantoprazole Sodium [Protonix 40mg (*)] 40 mg PO DAILY 10/10/17 [Last Taken 03/19] oxyCODONE IR [Oxycodone Ir (*)] 5 - 10 mg PO Q3HRS PRN 10/10/17 [Last Taken 03/19 04:00] predniSONE 60 mg PO DAILY 10/10/17 [Last Taken 10/09/17] Cyclobenzaprine [Flexeril 10 MG (*)] 10 mg PO TID PRN tab 10/15/17 [Last Taken Unknown] Enoxaparin [Lovenox 40 MG (*)] 40 mg SC DAILY syr 10/15/17 [Last Taken Unknown] Gabapentin [Neurontin 300 MG (*)] 600 mg PO TID cap 10/15/17 [Last Taken Unknown] morphINE SR [Ms Contin/Oramorph 15 mg (*)] 15 mg PO BID tab 10/15/17 [Last Taken Unknown] oxyCODONE/APAP 5/325 [Percocet 5/325 (*)] 1 - 2 tab PO Q4HRS PRN tab 10/15/17 [ Last Taken Unknown] predniSONE 60 mg PO DAILY tablet 10/15/17 [Last Taken Unknown] Discharge Medications: Refer to the Discharge Home Medication list for PRN reason. PICC Care - Routine: N/A - Orders Services needed: Physical Therapy, Occupational Therapy Diet Recommendation: no restrictions on diet Diet Texture: Regular Texture Diet Wound Care Instructions: Remove cervical and lumbar steri sripts on 10/25/17 Equipment: Hard collar at all times for 4 weeks,LSO brace at all times when out of bed - Follow Up Care Current Providers and Referrals: Diego Moody MD [Primary Care Provider] -
--- NOTE | 2017-10-15 13:51 | ASMTCMCOM ---
CM Note CM Note Notes: Pt medically stable for d/c to [facility] inpatient rehab. Insurance auth was obtained at 12:00 and pt transported pt. Orders faxed to [phone] Infante at [facility] to call and let RN know report number. Date Signed: 10/15/2017 01:50 PM Electronically Signed By:LEONARDA Joseph
--- NOTE | 2017-10-15 13:53 | ASDISCHSUM ---
Discharge Information Plan Status:Inpatient Rehab Medically Cleared to Leave: Discharge Date:10/15/2017 01:35 PM CM D/C Disposition: ADT D/C Disposition:Other Rehab, Not [place] Projected Discharge Date:10/15/2017 11:00 AM Transportation at D/C:Family Discharge Delay Reason: Follow-Up Date:10/15/2017 11:00 AM Discharge Slot: Final Diagnosis: Placement Information Referral Type:Rehabilitation Hospital Referral ID:[id number] [facility] Address 1:[address] Address 2: City:[place] Selection Factors: State:[place] Patient Contact Information Contact Name:MICHAEL Relationship: Address:[address] City:[place] Alternate Phone: State/Zip Code:[place] [address] Email: Financial Information Financial Class:HMO and PPO Plans Primary Plan Desc:[facility] PPO HMO Primary Plan Number:[id number] Secondary Plan Desc:MEDICARE INPATIENT Secondary Plan Number:[id number] Assessment Information [facility] CM Progress Note CM Note CM Note Notes: Spoke with RN & pt. Pt admitted w/bilateral leg weakness; Neuro consulted; awaiting MRI; pt may need surgery. Pt states he normally lives with his spouse, Kay ([phone]), in [place], but was at [facility] in [place], for 1 day doing rehab. Pt states his transported him to [facility] seeking Neuro consult because he was unable to do rehab because of severity of leg weakness. Pt would ultimately like to return to [facility] Re[facility], if leg weakness improves. Spoke with Arelis ([phone]), at [facility]; confirmed pt was there for just 1 day. Arelis states [facility] is willing to take pt back, but if it's been >3 days pt will need new insurance auth to return & Arelis will need to know [place]. Arelis requests CM send frequent updates; reports she is not able to receive faxes through [employer]; requests faxes be sent to [phone]; updates faxed. Arelis also states [facility] does not provide transportion for their pts & [facility] will need to arrange transport for pt to return. CM will continue to follow. Date Signed: 10/10/2017 12:18 PM Electronically Signed By:Rosita Laguna RN [facility] CM Progress Note CM Note CM Note Notes: Pt scheduled to have C2-4 laminectomy/fusion & T12/L1 TLIF today. Arelis, at [facility], faxed updates. CM will follow. [facility]- [facility] Inpt Rehab Date Signed: 10/11/2017 12:15 PM Electronically Signed By:Rosita Laguna RN [facility] CM Progress Note CM Note CM Note Notes: Arelis dutton [facility] inpatient rehab ([phone]) states they can accept pt Saturday if pt still qualifies and a new ins auth is obtained (she does not anticipate it should take long). CM to follow. Date Signed: 10/11/2017 04:09 PM Electronically Signed By:LEONARDA Joseph [facility] CM Progress Note CM Note CM Note Notes: Updates faxed to [facility] including PT/OT notes rec inpat rehab. Insurance auth needed for return to [facility] rehab. Potential d/c Saturday. Date Signed: 10/12/2017 04:25 PM Electronically Signed By:LEONARDA Joseph [facility] CM Progress Note CM Note CM Note Notes: Spoke with Arelis Villagomez regarding patient's status and possibility of his return to rehab. Per Neuro notes likely ready to dc tomorrow. Arelis is working on authorizaton with insurance, Updates faxed to facility. [facility] [place] [facility]. CM to follow Date Signed: 10/14/2017 11:38 AM Electronically Signed By:Maryuri Corrales RN [facility] CM Progress Note CM Note CM Note Notes: Pt medically stable for d/c to [facility] inpatient rehab. Insurance auth was obtained at 12:00 and pt transported pt. Orders faxed to [phone]. Arelis at [facility] to call and let RN know report number. Date Signed: 10/15/2017 01:50 PM Electronically Signed By:LEONARDA Joseph Intervention Information Intervention Type:*IM-Signed Date of Service:10/15/2017 01:34 PM Patient Type:Inpatient Staff Member:Monica Bernabe Hours: Discipline: Severity: Comment:
== END 2017-10-15 13:35 | DRG 460 ==
LOC: F3N 23:11 → OBSVTOIN 10-11 11:39 → F2N 10-11 15:44 → F3N 10-12 10:35
PROVIDERS: ADMIT Neurological Surgery; ATTEND Neurological Surgery
DX: M51.05 Intervertebral disc disorders with myelopathy, thoracolumbar region (principal); M48.02 Spinal stenosis, cervical region; G72.41 Inclusion body myositis [IBM]; Z98.1 Arthrodesis status; I10 Essential (primary) hypertension; Z91.81 History of falling
CPT/HCPCS: 97110-GP; 97116-GP; 97162-GP; 97166-GO; 97535-GO; C1713; G0378; G8978-GP-CK; G8979-GP-CJ; G8980-GP-CJ; G8987-GO-CK; G8988-GO-CI; J0171; J0690; J1100; J1170; J1650; J2270; J2274; J2405; J2704; J3010; J7060; J7512